=== PATIENT | female | born 1955 | race Caucasian/White ===

== ENCOUNTER 2020-04-04 18:00 | Observation (INO) | payer MEDICARE, MEDICAID ==
[2020-04-04] MEDS ORDERED: Labetalol HCl 100 MG/20 ML VIAL SLOW IVP PRN (20:09)
[2020-04-04] MEDS ORDERED: hydrALAZINE 20 MG/ML VIAL SLOW IVP PRN (20:09)
[2020-04-04] MEDS ORDERED: Ondansetron ODT 4 MG TAB PO PRN (20:14)
[2020-04-04] MEDS ORDERED: Acetaminophen 325 MG TAB PO PRN (20:14)
[2020-04-04] MEDS ORDERED: Senokot S 8.6-50 MG TAB PO PRN (20:14)
[2020-04-04 20:46] LABS: PTT 34.4 sec (22.9-36.1); Prothrombin Time 12.7 sec (12.0-14.7)
[2020-04-04] MEDS ORDERED: Atorvastatin Calcium 40 MG TAB PO SCH (21:00)
--- NOTE | 2020-04-04 21:00 | HP ---
PRIMARY CARE PHYSICIAN: Out of town. CHIEF COMPLAINT: Blurry vision and ataxia. HISTORY OF PRESENT ILLNESS: The patient is a 64-year-old female with a past medical history significant for hypertension, epilepsy, bipolar disease, and stomach ulcers, who presents for the above complaint. The patient reports acute onset of blurry vision this morning while waking up. She reports that at first she thought her glasses were crooked, so she had to fix them several times and realized that it was not her glasses. She reports that she felt drunk and was staggering throughout the house, having to hold onto barron and hand rails to ambulate. She reports that she checked her blood pressure and it was high multiple times. Average SBP of 195 with a diastolic of 125. She reports some associated nausea but no vomiting. This went on for several hours, so she decided to go to the ER in [place]. She denies any recent trauma or falls. She denies any headache or slurred speech or difficulty swallowing. She denies any chest pain, heart palpitation, or lower extremity swelling. She denies any shortness of breath or cough. She denies any abdominal pain, vomiting, or diarrhea. She denies any dysuria. She denies any recent change to her medications. She has not been hospitalized recently. In the [place] ER , vital signs were taken. The patient was found to be hypertensive at 169/84 with a regular pulse, regular respirations, regular O2 saturation, and no pain. GCS was 15. NIH was zero. CT of the brain and CTA of the head and neck were negative for any acute process. Initial troponin was negative. There was no EKG that I could find record of. White blood cells were 13.8. Her CMP and CBC were unremarkable. She was given full-dose aspirin and Zofran and transferred to the [place] ER. PAST MEDICAL HISTORY: 1. Hypertension. 2. Epilepsy. 3. Bipolar. 4. Stomach ulcers. SURGICAL HISTORY: 1. Appendectomy. 2. Hysterectomy. 3. Tonsillectomy. 4. x4. 5. Bilateral total knee replacements. SOCIAL HISTORY: The patient lives in [place] with her family. She is a disabled RN. She reports weekly ETOH intake, 1 pack per day x30 years smoking history. No illicit drug use. FAMILY HISTORY: Significant for hypertension. REVIEW OF SYSTEMS: All review of systems are negative unless otherwise noted in the HPI. PHYSICAL EXAMINATION: VITAL SIGNS: Temperature 98.4, blood pressure 169/84, heart rate 72, respirations 18, SpO2 of 98% on room air. Pain scale 0/10. CONSTITUTIONAL: The patient is alert and oriented to person, place, and time. No acute distress. Nontoxic appearing. Moving all extremities. HEAD: Atraumatic, normocephalic. EYES: PERRLA. Extraocular muscles intact. Sclerae are nonicteric. ENT: Nares patent bilaterally. EACs patent bilaterally. TMs intact bilaterally. Oropharynx clear. Uvula midline. No oral lesions. Moist mucous membranes. NECK: Supple. Trachea midline. No JVD. No cervical adenopathy. No neck stiffness. RESPIRATIONS: Even and nonlabored. No rhonchi, wheezes, or rales. CARDIOVASCULAR: S1, S2 auscultated. Regular rate and rhythm. No murmurs, rubs , or gallops. ABDOMEN: Soft, nontender. Active bowel sounds. No guarding, no rigidity, no rebound. Negative Rovsing sign. No abdominal bruit auscultated. EXTREMITIES: Bilateral upper extremities; normal range of motion, normal strength, sensation intact. Palpable radial pulses. Bilateral lower extremities; full range of motion, normal strength, normal sensation. Palpable pedal pulses. No swelling. BACK: Full range of motion. No central spinous tenderness. No CVA tenderness. NEURO: GCS of 15. NIH of zero. Cranial nerves 2 through 12 intact. No focal deficits. PSYCH: History of bipolar. Normal affect. No suicidal or homicidal ideation. DIAGNOSTICS AND LABS: CT of brain and CTA of head and neck were negative for any acute process. Chest x-ray was negative for any acute process. Troponin was negative. Sodium 135, potassium 4.2, chloride 101, carbon dioxide 24, BUN 10, creatinine 1.02, GFR of 55, glucose was 110, T bilirubin 0.4, AST 13, ALT 13, ALP 128. WBC 13.8, hemoglobin 14.3, hematocrit 46.8, and platelets 256. IMPRESSION AND PLAN: 1. Vertigo, rule out cerebrovascular accident. Admit the patient to the stroke floor, observation status. Expected length of stay, less than 2 midnights. The patient reported blurry vision, ataxia, and dizziness, which was resolved upon presentation. NIH of zero. GCS of 15. CT of the brain and CT of the head and neck were negative. Initial troponin was negative. CMP and CBC were unremarkable. We will order MRI and echo, consult Physical Therapy and Neurology, allow permissive hypertension with p.r.n. medications, continue aspirin, add a statin, check another troponin, TSH, folate, B12, and get a baseline EKG and a PT/INR baseline. 2. Hypertension. The patient reported elevated blood pressure. Denied any headaches or bleeding. Currently, blood pressure mildly elevated in the ER. We will restart the patient's home medications, carvedilol, lisinopril, and allow permissive hypertension. 3. Tobacco abuse. The patient has a 30-year pack per day history, unwilling to quit. We will start NRT therapy and we will supervisor counseling and guidance on tobacco cessation. 4. Bipolar disorder, chronic, stable. We will restart the patient's home medications, quetiapine. 5. Epilepsy, chronic, stable. We will restart the patient's home medication, lamotrigine and oxcarbazepine. 6. Consult Physical Therapy. 7. SCDs for deep vein thrombosis prophylaxis. 8. Protonix for gastrointestinal prophylaxis. 9. The patient is a full code. No MPOA given. 10. Discussed the case with Dr. Franklin Armas. Job ID: [id number] [facility]
[2020-04-04 21:02] LABS: Troponin I 0.011 ng/mL (< 0.028)
[2020-04-04] MEDS ORDERED: Aspirin 325 MG TAB PO SCH (21:45)
[2020-04-04] MEDS ORDERED: Nicotine 14 MG PATCH TD SCH (22:00)
[2020-04-04 23:27] VITALS: BMI 33.3
[2020-04-04] MEDS: Calcium Carbonate 500 MG ChewTAB PO PRN (23:56)
[2020-04-05] MEDS ORDERED: lamoTRIgine 100 MG TAB PO SCH ×3 (02:00→21:00)
[2020-04-05] MEDS ORDERED: OXcarbazepine 300 MG TAB PO SCH ×3 (02:00→21:00)
[2020-04-05 05:14] LABS: #Basophils 0.1 thou/uL (0.0-0.2); #Eosinphils 0.4 thou/uL (0.0-0.7); #Lymphocytes 2.5 thou/uL (1.20-3.40); #Monocytes 0.6 thou/uL (0.11-0.59); %Basophils 0.8 % (0.0-1.0); %Lymphocytes 32.8 % (21.0-51.0); %Neutrophils 53.5 % (42.0-75.0); Hemoglobin 13.5 g/dL (12.0-16.0); Mean Corpuscular HGB CONC 32.3 g/dL (32.0-36.0); Mean Corpuscular Hemoglobin 29.3 pg (27.0-31.0); Mean Corpuscular Volume 90.6 fL (78.0-98.0); Platelet Count 220 thou/uL (130-400); RBC Distribution Width 13.3 % (11.5-14.5); Red Blood Cell (RBC) Count 4.62 mill/uL (4.20-5.40); White Blood Cell (WBC) Count 7.5 thou/uL (4.8-10.8)
[2020-04-05 05:38] LABS: Anion Gap 9 mmol/L (10-20); BUN (Urea Nitrogen) 9 mg/dL (9.8-20.1); Calc. Creatinine Clearance 92 mL/min (70-130); Carbon Dioxide 30 mmol/L (23-31); Cardiac Risk 3.5 (Less than 4.5); Chloride 102 mmol/L (98-107); Cholesterol 179 mg/dl (< 200 Desired); Estimated GFR-MDRD 60; Glucose 100 mg/dL (80-115); HDL Cholesterol 51 mg/dL (>60 Neg Risk); LDL Cholesterol, Calculated 90 mg/dL; Potassium 3.7 mmol/L (3.5-5.1); Sodium 137 mmol/L (136-145); Triglycerides 191 mg/dL (Less than 150)
[2020-04-05] MEDS: Calcium Carbonate 500 MG ChewTAB PO PRN (08:26)
[2020-04-05] MEDS ORDERED: Aspirin 325 mg Enteric Coated Tablet PO SCH (09:00)
--- NOTE | 2020-04-05 09:37 | MRI ---
Exam: Brain MRI without contrast HISTORY: Transient ischemic attack COMPARISON: None FINDINGS: Calvarial marrow signal intensity: Appropriate T1 signal Gradient echo sequence: No hemorrhage Brain parenchyma: No mass, mass effect or midline shift. Brain volume, age-appropriate. Cortical almanza-white matter differentiation: Preserved Restricted diffusion: Central arterial flow voids are maintained. Absent restricted diffusion White matter signal intensities:Scattered T2, FLAIR white matter hyperintensities due to chronic smal l vessel ischemic changes Sinuses: Minimal mucosal thickening of the ethmoid air cells. IMPRESSION: 1. Absent restricted diffusion. No acute infarct.
--- NOTE | 2020-04-05 11:25 | CON ---
NEUROLOGY CONSULTATION DATE OF CONSULTATION: 04/05/2020 REASON FOR CONSULTATION: Blurred vision, ataxia, rule out posterior circulation stroke. HISTORY OF PRESENT ILLNESS: Ms. Gilliam is a 64-year-old female with medical history significant for hypertension, epilepsy, bipolar disorder, and stomach ulcers, presented with acute onset of blurred vision and coordination issues. According to the patient, when she first woke up, she thought her glasses were crooked and everything was looking tilted and she felt as if she is drunk and was staggering and holding onto barron and unable to ambulate. She does have some slurred speech, but denies focal weakness, vertigo, nausea, vomiting, headache, difficulty in swallowing. She also denies chest pain, abdominal pain, diarrhea, abnormal involuntary motor movements, loss of consciousness or loss of vision. She came to the [facility], where was she found to have a blood pressure of 169/84. Her GCS was 15. NIH scale was 0. CTA of the brain was done, which was negative. CT angiogram of the head and neck was also negative for hemodynamically significant stenosis. Her initial troponin was negative, and CBC and CMP were also unremarkable. She was given full dose of aspirin and Zofran for nausea, and transferred to [facility] for further evaluation for stroke. REVIEW OF SYSTEMS: All 14 systems were reviewed and were negative except the pertinent positives and negatives mentioned in the HPI. PAST MEDICAL HISTORY: Hypertension, epilepsy, bipolar disorder, stomach ulcers. PAST SURGICAL HISTORY: Hysterectomy, appendectomy, tonsillectomy, sections 4 times, bilateral total knee replacement. SOCIAL HISTORY: The patient lives with the family. 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 Denies illegal drug use. She does drink alcohol occasionally. FAMILY HISTORY: Significant for hypertension. PHYSICAL EXAMINATION: VITAL SIGNS: Blood pressure was 150/60, pulse 80, respiratory rate 18. CVS: Regular rate and rhythm. CHEST: Clear. ABDOMEN: Soft. NECK: No carotid bruit. NEUROLOGIC: Mental status; the patient is alert and oriented to person, place, and time. Speech is clear. Fund of knowledge is appropriate. Recent and remote memory intact. Cranial nerves 2 through 12 intact. Motor; muscle tone and bulk are normal. Strength 5/5 bilaterally. Sensory intact. Cerebellar and finger-nose testing intact. Gait deferred due to patient's safety reasons. LABORATORY DATA: I reviewed the CT of the brain and CTA of the head and neck which were negative for acute intracranial process. ASSESSMENT AND PLAN: Ms. Sarah Gilliam is a 64-year-old with a history significant for hypertension, epilepsy, and bipolar disorder, presented with blurred vision, ataxia, and dizziness, upon presentation, most likely posterior circulation TIA. MRI of the brain reviewed which was negative for acute intracranial pathology. CT angiogram of the head and neck was also negative for hemodynamically significant stenosis. Telemetry. Check hemoglobin A1c, TSH, and fasting lipid profile. Consider aspirin as permissive control of blood pressure at this time. Aspirin and high-intensity statin for secondary stroke prevention. 2D echo to rule out cardioembolic source. Telemetry. Continue supportive measures, PT/OT/Speech. We will continue medical management per primary team. Plan discussed in detail with the patient and the nursing staff. We will continue to follow. Thank you for the consult. Job ID: [id number] [facility]
[2020-04-05 12:03] LABS: Bacteria/HPF None Seen HPF (None Seen); Bilirubin Negative (Negative); Blood, Urine Negative (Negative); Clarity Clear (Clear); Glucose, Urine (Dipstick) Normal (Negative); Leukocyte Negative Leu/uL (Negative); Nitrite Negative (Negative); Protein, Urine (Dipstick) Negative (Neg-Trace); RBC/HPF 0-3 HPF (0-3); Squamous Epithelial 0-3 HPF (0-3); Urobilinogen Normal mg/dL (Less than 2); WBC/HPF 0-3 HPF (0-3)
[2020-04-05 12:06] LABS: Amphetamine Detected (NotDetected); Barbiturates Screen Not Detected (NotDetected); Benzodiazepine Screen Not Detected (NotDetected); Cocaine Metabolite Screen Not Detected (NotDetected); Medtox Control Line Valid? VALID (VALID); Medtox Reader # READER 4; Methadone Not Detected (NotDetected); Methamphetamine Not Detected (NotDetected); Opiate Screen Not Detected (NotDetected); Oxycodone Screen Not Detected (NotDetected); Phencyclidine (PCP) Not Detected (NotDetected); THC/Cannabinoid Screen Not Detected (NotDetected); Tricyclic Screen Not Detected (NotDetected)
[2020-04-05 15:12] VITALS: BP 164/89; TEMP 98.7
[2020-04-05] MEDS ORDERED: Carvedilol 6.25 MG TAB PO SCH (21:00)
--- NOTE | 2020-04-06 00:23 | DIS ---
DATE OF ADMISSION: 04/04/2020 DATE OF DISCHARGE: 04/05/2020 DISCHARGE DISPOSITION AND FOLLOWUP: The patient will follow up with her PCP and Neurologist in the next week. IN-HOSPITAL COURSE: Ms. Sarah Gilliam is a 64-year-old female with past medical history of hypertension, epilepsy, bipolar disorder, and peptic ulcer disease, who was admitted due to blurry vision and ataxia to rule out TIA. The patient underwent 2D echo, MRI, and CTA, all of them came back negative. The patient was evaluated by Neurologist. The patient was started on secondary prevention medication with aspirin and statin. The patient was oriented about her conditions, treatment, and followup plan. She refers to agree and understand. FINAL DIAGNOSIS: Transient ischemic attack. DISCHARGE MEDICATIONS: 1. Aspirin 162 mg p.o. daily. 2. Atorvastatin 40 mg p.o. daily. TIME SPENT: Time spent less than 30 minutes. Job ID: [id number]
[2020-04-06] MEDS ORDERED: Lisinopril 20 MG TAB PO SCH (09:00)
--- NOTE | 2020-04-06 10:48 | EKG ---
Test Reason : Blood Pressure : / mmHG Vent. Rate : 067 BPM Atrial Rate : 067 BPM P-R Int : 154 ms QRS Dur : 088 ms QT Int : 418 ms P-R-T Axes : 053 -25 027 degrees QTc Int : 441 ms Normal sinus rhythm Normal ECG No previous ECGs available Confirmed by DR. Derek HAYS ([id number]) on 04/06/2020 10:48:19 AM Referred By: ANNIE Confirmed By:DR. Derek HAYS
== END 2020-04-05 18:15 | disposition home or self-care (01) ==
LOC: ERS 18:00 → 2SE 19:45
PROVIDERS: ADMIT Internal Medicine; ATTEND Internal Medicine
DX: G45.9 Transient cerebral ischemic attack, unspecified (principal); I10 Essential (primary) hypertension; F31.9 Bipolar disorder, unspecified; K27.9 Peptic ulcer, site unspecified, unspecified as acute or chronic, without hemorrhage or perforation; F17.210 Nicotine dependence, cigarettes, uncomplicated; G40.909 Epilepsy, unspecified, not intractable, without status epilepticus
CPT/HCPCS: 36415; 70551; 80048; 80061; 80306; 81001; 82607; 82746; 84443; 85025; 85610; 85730; 93005; 93010; 93306; G0378

== ENCOUNTER 2023-02-04 13:28 | Outpatient (CLI) | payer MEDICARE, MEDICAID | END 2023-02-04 13:29 | disposition home or self-care (01) | LOC: BICULT 13:28 | PROVIDERS: ATTEND Internal Medicine Nephrology | DX: N18.30 Chronic kidney disease, stage 3 unspecified (principal) | CPT/HCPCS: 36415; 76770; 80048; 82306; 82570; 84156 ==